=== PATIENT | male | born 1965 | race Two or more races ===

== ENCOUNTER 2017-01-06 16:11 | Emergency (ER) | payer SELFPAY ==
[~2017-01-06] VITALS: Ht 177.8 cm; Wt 86.0 kg
[2017-01-06 17:35] VITALS: BP 142/98
[2017-01-06] MEDS ORDERED: BACITRACIN ZINC OINT UDPKT TOP ONE (19:15)
[2017-01-06] MEDS ORDERED: LIDOCAINE HCL 1% 20ML VIAL (Pyxis) INJ MC ONE (19:15)
== END 2017-01-06 19:55 | disposition left against medical advice (07) ==
LOC: ER 16:12
DX: S51.812A Laceration without foreign body of left forearm, initial encounter (principal); W26.0XXA Contact with knife, initial encounter; Y93.89 Activity, other specified; Y92.89 Other specified places as the place of occurrence of the external cause; Y99.8 Other external cause status
CPT/HCPCS: 99283; Z7610